=== PATIENT | male | born 1985 | race Caucasian/White ===

== ENCOUNTER 2020-06-13 18:12 | Inpatient (IN) | payer OTHER, SELFPAY ==
[~2020-06-13] VITALS: Ht 193 cm; Wt 83.9 kg
[~2020-06-13 18:12] MED LIST: ACET650T11 PO; ARIP15TA5 PO; CARB300C PO; GABA600T11 PO; MIRT45TA PO
[2020-06-13 18:17] VITALS: BP 133/72
--- NOTE | 2020-06-13 18:21 | NUR ---
34 y/o male biba from home placed on 515 by Gladys MUNOZ for suicide attempt. Pt states he took approx 16-17 Seroquel today. Multiple attempts at suicide in the past. Pt awake and alert. Denies pain. Suicide precautions in place. Pt calm and cooperative at this time medhx: seizures and bipolar
--- NOTE | 2020-06-13 18:27 | NUR ---
Per poison control watch for drowsiness-- keep airway intact, intubate as needed seizure precaution--ativan for seizure like activity Hypotension-- treat with IV fluids QTC prolongation-- correct if >460 Observe for 6 hrs
--- NOTE | 2020-06-13 18:35 | NUR ---
Pt states he is unable to give urine at this time.
--- NOTE | 2020-06-13 18:35 | NUR ---
Dr Rosas at bedside examining pt
[2020-06-13 18:56] LABS: BASOPHILS % (AUTO) 0.1 % (0.0-2.0); EOSINOPHILS # (AUTO) 0.3 K/uL (0-0.4); EOSINOPHILS % (AUTO) 5.4 % (0.0-4.0); HEMATOCRIT 35.9 % (36-52); HEMOGLOBIN 12.4 g/dL (12.0-18.0); LYMPHOCYTES # (AUTO) 1.6 K/uL (2.0-11.5); LYMPHOCYTES % (AUTO) 27.8 % (20.5-51.1); MEAN CORPUSCULAR HEMOGLOBIN 28 pg (27-31); MEAN CORPUSCULAR HGB CONC 34 g/dL (33-37); MONOCYTES # (AUTO) 0.4 K/uL (0.8-1.0); MONOCYTES % (AUTO) 7.5 % (1.7-9.3); NEUTROPHILS # (AUTO) 3.4 K/uL (1.8-7.7); NEUTROPHILS % (AUTO) 59.2 % (42.2-75.2); PLATELET COUNT (AUTO) 171 K/uL (140-450); RED BLOOD CELL COUNT(AUTO) 4.38 MIL/uL (4.20-6.10); RED CELL DISTRIBUTION WIDTH 12.8 % (11.6-13.7); WHITE BLOOD COUNT (AUTO) 5.7 K/uL (4.8-10.8)
[2020-06-13 19:16] LABS: ACETAMINOPHEN < 0.5 ug/ml (10-30); ALBUMIN 3.4 g/dL (3.4-5.0); ANION GAP 12.3 (8-16); ASPARTATE AMINOTRANSFERASE 23 U/L (15-37); CARBON DIOXIDE 25.9 mmol/L (21-32); CHLORIDE 109 mmol/L (98-107); GFR ARICAN-AMERICAN 109 mL/min (>90); GLUCOSE 112 mg/dL (74-106); POTASSIUM 4.2 mmol/L (3.5-5.1); SALICYLATE < 2.8 mg/dL (2.8-20.0); SODIUM SERUM 143 mmol/L (136-145); TOTAL BILIRUBIN 0.4 mg/dL (0.0-1.0); UREA NITROGEN, BLOOD 22 mg/dL (7-18)
--- NOTE | 2020-06-13 19:17 | NUR ---
Pt report given to Kingsley RICE. Transfer of care at this time.
--- NOTE | 2020-06-13 19:17 | NUR ---
REPORT RECEIVED FROM KARLY RICE FOR CONTINUITY OF CARE
[2020-06-13] MEDS: NACL 0.9% 1,000 ML IV SCH (19:28)
[2020-06-13] MEDS ORDERED: ACETAMINOPHEN 325 MG TAB PO PRN (19:30)
--- NOTE | 2020-06-13 19:30 | NUR ---
JOSE GUADALUPE ANTIGEN AND NOVEL COVID SWABS DONE AND SENT TO LAB
--- NOTE | 2020-06-13 20:00 | NUR ---
PT UNABLE TO GIVEN URINE AT THIS TIME
--- NOTE | 2020-06-13 21:15 | NUR ---
Patient will be admitted to care of DR CORNELIUS. Admited to TELE. Will go to room 109 A. Belongings list completed. Report to LAINE RICE.
--- NOTE | 2020-06-13 21:15 | NUR ---
RECEIVED REPORT FROM ER NURSE, MORGAN. PT ON TELE. SLEEPING BUT EASILY AROUSABLE. NO S/S RESPIRATORY DISTRESS. NO C/O PAIN AT THIS TIME. HAS CIGARETTE WANG ON RIGHT ARM. IV SITE LFA 20G, S.L. PT ON 5150 FOR SEROQUEL OVERDOSE. SITTER AT BEDSIDE. ORIENTED TO ROOM AND HOSPITAL. SAFETY MEASURES IN PLACE. PT IS PUI. ISOLATION PRECAUTION IN PLACE. WILL CLOSELY MONITOR PT.
--- NOTE | 2020-06-13 21:30 | NUR ---
PT REFUSED VITAL SIGNS TO BE AND MRSA SWAB TO BE TAKEN. WILL CONTINUE TO MONITOR
--- NOTE | 2020-06-13 21:45 | NUR ---
PT REFUSED TO GET IVF AND ANSWER ADMISSION QUESTIONS. PT GUARDS AND TURNS BODY AWAY, PULLS BLANKET COVERS OVER FACE. NO S/S RESPIRATORY DISTRESS. WILL CONTINUE TO MONITOR
--- NOTE | 2020-06-13 23:00 | NUR ---
PT ASLEEP IN BED. ABLE TO AROUSE AND OPEN EYES TO VOICE AND TOUCH. NO DISTRESS NOTED. WILL CONTINUE TO MONITOR
[2020-06-14] VITALS: BP 137/76
--- NOTE | 2020-06-14 01:15 | NUR ---
PT ASLEEP IN BED. RESPIRATIONS EVEN AND UNLABORED. NO DISTRESS NOTED. WILL CONTINUE TO MONITOR
--- NOTE | 2020-06-14 03:50 | NUR ---
PT ASLEEP IN BED. NO DISTRESS NOTED. WILL CONTINUE TO MONITOR
[2020-06-14 04:00] VITALS: BP 117/71
[2020-06-14] MEDS: NACL 0.9% 1,000 ML IV SCH ×2 (05:28→15:28)
--- NOTE | 2020-06-14 06:30 | NUR ---
PT ASLEEP IN BED. NO DISCOMFORTED NOTED. NO DISTRESS NOTED. WILL CONTINUE TO MONITOR
--- NOTE | 2020-06-14 07:10 | NUR ---
ENDORSED PT TO DAY RN FOR CONTINUITY OF CARE. PT IS IN STABLE CONDITION
--- NOTE | 2020-06-14 07:11 | NUR ---
RECEIVED REPORT FROM BLUEBERRY GROWER NURSE LAINE FOR CONTINUITY OF CARE. PATIENT IN STABLE CONDITION. RESPIRATIONS EVEN AND UNLABORED, ROOM AIR. IV INTACT AND PATENT. SAFETY MEASURES IN PLACE. BED IN LOW POSITION. SITTER AT BEDSIDE. WILL CONTINUE TO MONITOR.
[2020-06-14 07:34] LABS: EOSINOPHILS # (AUTO) 0.3 K/uL (0-0.4); EOSINOPHILS % (AUTO) 3.5 % (0.0-4.0); HEMATOCRIT 38.7 % (36-52); LYMPHOCYTES # (AUTO) 1.4 K/uL (2.0-11.5); LYMPHOCYTES % (AUTO) 17.8 % (20.5-51.1); MEAN CORPUSCULAR HEMOGLOBIN 28 pg (27-31); MEAN CORPUSCULAR HGB CONC 34 g/dL (33-37); MEAN CORPUSCULAR VOLUME 83.5 fL (80-94); MONOCYTES # (AUTO) 0.8 K/uL (0.8-1.0); MONOCYTES % (AUTO) 10.2 % (1.7-9.3); NEUTROPHILS # (AUTO) 5.2 K/uL (1.8-7.7); NEUTROPHILS % (AUTO) 68.5 % (42.2-75.2); PLATELET COUNT (AUTO) 183 K/uL (140-450); RED BLOOD CELL COUNT(AUTO) 4.64 MIL/uL (4.20-6.10); RED CELL DISTRIBUTION WIDTH 12.9 % (11.6-13.7); WHITE BLOOD COUNT (AUTO) 7.6 K/uL (4.8-10.8)
[2020-06-14 08:09] LABS: ALBUMIN 3.4 g/dL (3.4-5.0); ANION GAP 12.7 (8-16); CARBON DIOXIDE 24.4 mmol/L (21-32); CREATININE 0.9 mg/dL (0.6-1.3); POTASSIUM 4.1 mmol/L (3.5-5.1); TOTAL BILIRUBIN 0.2 mg/dL (0.0-1.0)
--- NOTE | 2020-06-14 08:42 | NUR ---
MARTIR FROM POISON CONTROL CALLED FOR UPDATE. ALL QUESTIONS ANSWERED AT THIS TIME.
--- NOTE | 2020-06-14 09:00 | NUR ---
LEFT A VOICEMAIL MESSAGE FOR DR. VASQUEZ TO FOLLOW UP WITH THE PSYCH CONSULT. AWAITING FOR CALL BACK.
--- NOTE | 2020-06-14 09:06 | NUR ---
PATIENT HAS BEEN SCREENED AND CATEGORIZED LOW NUTRITION RISK DUE TO 5150 STATUS. PATIENT WILL BE SEEN WITHIN 7 DAYS OF ADMISSION. 06/20/[address]
--- NOTE | 2020-06-14 10:01 | NUR ---
PATIENT SLEEPING AT THIS TIME. RESPIRATIONS EVEN AND UNLABORED. BED IN LOW POSITION. SITTER AT BEDSIDE. WILL CONTINUE TO MONITOR.
[2020-06-14 12:00] VITALS: BP 109/65
--- NOTE | 2020-06-14 12:05 | NUR ---
DISCHARGE PLANNING: THIS IS A 34 Y/O MALE PATIENT FROM HOME, WHO WAS BROUGHT IN BY PD ON 5150 HOLD DUE TO HE OVERDOSED ON SEROQUEL. PAST MEDICAL HISTORY INCLUDE ASTHMA, SEIZURE. INITIAL DIAGNOSIS OF OVERDOSE. CURRENT LABS INCLUDE WBC 7.6, H/H 13.0/38.7, NA/K 143/4.1, BUN/CREA 17/0.9. RAPID COVID NEGATIVE, PCR PENDING. PSYCHE CONSULT IN PLACE NOT SEEN YET. DC PLAN PENDING ON PSYCHE'S RECOMMENDATIONS. Addendum: 06/16/20 at 1351 by Nivia Diez DC PLANNING: DR ROSADO EVALUATED PATIENT ON 10/15/19 AND CONTINUE 5150 HOLD CALLED [phone] SPOKE WITH ARPAN AND FAXED 5150 HOLD AND ALL PAPER WORK TO [phone] CM TO FOLLOW Addendum: 06/16/20 at 1443 by Nivia Diez DC PLANNING: RECEIVED A CALL FROM ARP[facility] STATED THE HOLD WILL BE 170,TODAY NOTIFIED CHARGE NURSE KALIA WHEN DR VASQUEZ COMES IF HE RENEW IT TO [facility] [phone] CM TO FOLLOW
--- NOTE | 2020-06-14 12:10 | NUR ---
PATIENT CONTINUES TO NOT VERBALIZE HIS WANTS AND NEEDS. PATIENT WILL SHAKE HEAD YES AND NO WHEN ASKED A QUESTION. ENCOURAGE PATIENT TO DRINK WATER. VITALS TAKEN AT THIS TIME. SITTER AT BEDSIDE. BED IN LOW POSITION. WILL CONTINUE TO MONITOR.
--- NOTE | 2020-06-14 14:00 | NUR ---
PATIENT SLEEPING AT THIS TIME. RESPIRATIONS EVEN AND UNLABORED. BED IN LOW POSITION. SITTER AT BEDSIDE. WILL CONTINUE TO MONITOR.
[2020-06-14 16:00] VITALS: BP 111/62
--- NOTE | 2020-06-14 17:02 | NUR ---
PATIENT SLEEPING AT THIS TIME, EASY TO AROUSE. RESPONDS TO HIS NAME. BED IN LOW POSITION. SITTER AT BEDSIDE. WILL CONTINUE TO MONITOR.
--- NOTE | 2020-06-14 19:15 | NUR ---
GAVE REPORT TO POSTAL SUPERVISOR NURSE FOR CONTINUITY OF CARE. PATIENT IN STABLE CONDITION.
[2020-06-14 20:00] VITALS: BP 125/79
--- NOTE | 2020-06-14 20:00 | NUR ---
RECEIVED BEDSIDE REPORT FROM DAY RN EARLIER FOR CONTINUITY OF CARE. PT ASLEEP AND EASY TO AROUSE. ON 5150 HOLD FOR SEROQUEL OVER DOSE. 1:1 SITTER AT THE BEDSIDE. PT DENIES ANY PAIN, CHEST PAIN ANT SOB AT THIS TIME. SB ON PROPERTY DISPOSAL OFFICER HR-49. VSS, AFEBRILE, SATING 97% ON RA. NOT ON ANY DISTRESS AT THIS TIME. CALL LIGHT WITHIN REACH. WILL CONTINUE POC AND MONITORING.
--- NOTE | 2020-06-14 22:00 | NUR ---
PT STILL REFUSED IVF, PER DAY RN MD IS AWARE . CALL LIGHT WITHIN REACH. SITTER AT THE BEDSIDE.
--- NOTE | 2020-06-14 22:30 | NUR ---
BOTH COVID RAPID AND PCR ARE NEGATIVE. TOOK PATIENT OFF ISOLATION. RUG CLIPPER MAGDI OJEDA.
[2020-06-15] VITALS: BP 97/55
--- NOTE | 2020-06-15 | NUR ---
PT VITAL SIGNS STABLE, AFEBRILE, SATING 98% ON RA. NO COMPLAIN OF PAIN AT THIS TIME. SITTER AT THE BEDSIDE.
[2020-06-15] MEDS: NACL 0.9% 1,000 ML IV SCH ×3 (01:28→21:28)
--- NOTE | 2020-06-15 02:00 | NUR ---
MADE ROUNDS. PT ASLEEP. NOT IN ANY DISTRESS. VISIBLE CHEST RISE AND FALL NOTED. WILL CONTINUE TO MONITOR.
[2020-06-15 04:00] VITALS: BP 114/62
--- NOTE | 2020-06-15 04:00 | NUR ---
PATIENT HAS BEEN SLEEPING THROUGHOUT THE SHIFT. PT HEART RATE SLOWS DOWN TO 36 NON SUSTAIN AND GOES BACK UP TO 50'S WHEN WE WAKE UP THE PT. PT DIDN'T DRINK WATER AND REFUSED IVF ALL NIGHT. DIDN'T SPEAK AND SOMETIMES PT JUST NOD OR SHAKE HIS HEAD. SITTER AT THE BEDSIDE.VSS, AFEBRILE, SATING 98% ON RA. SINUS MARLEEN ON REMOTE SENSING TECHNICIAN, HR-50.
--- NOTE | 2020-06-15 06:08 | NUR ---
PATIENT STABLE. NO SIGN AND SYMPTOMS OF DISTRESS NOTED. NO COMPLAIN AT THIS TIME. ALL NEEDS ATTENDED. REMINDED THE SITTER AGAIN TO SAVE URINE FOR SPECIMEN WHEN THE PT URINATE AND VERBALIZED UNDERSTANDING. CALL LIGHT WITHIN REACH. WILL ENDORSE THE PT TO THE ONCOMING RN FOR CONTINUITY OF CARE.
--- NOTE | 2020-06-15 07:28 | NUR ---
Endorsed patient to the oncoming Rn for continuity of care. Patient stable. Signing off.
--- NOTE | 2020-06-15 07:30 | NUR ---
RECEIVED REPORT FROM LAY HEALTH ADVOCATE NURSE FABIAN CRAMER-DWAYNE. PT RESTING IN BED, AOX4- REFUSING TO SPEAK SINCE ADMISSION, ON ROOM AIR WITH LEFT FA #20G- REFUSING IVF. DISCUSSED PLAN OF CARE- PT REFUSED TO SPEAK. RIGHT ARM CIGARETTE BURN. CALL LIGHT WITHIN REACH. NO S/S OF RESPIRATORY DISTRESS OR DISCOMFORT NOTED AT THIS TIME. WILL CONTINUE TO MONITOR.
[2020-06-15 08:00] VITALS: BP 113/67
--- NOTE | 2020-06-15 09:30 | NUR ---
PT RESTING IN BED. CALL LIGHT WITHIN REACH. NO S/S OF RESPIRATORY DISTRESS OR DISCOMFORT NOTED AT THIS TIME. WILL CONTINUE TO MONITOR.
[2020-06-15 09:55] LABS: APPEARANCE,URINE CLEAR (CLEAR); BILIRUBIN,URINE 1+ (NEGATIVE); BLOOD, URINE NEGATIVE (NEGATIVE); COLOR,URINE YELLOW (YELLOW); LEUKOCYTE ESTERASE ,URINE NEGATIVE (NEGATIVE); NITRITE, URINE NEGATIVE (NEGATIVE); UGLUCOSE NEGATIVE (NEGATIVE)
[2020-06-15 10:08] LABS: BARBITURATE, URINE NEGATIVE ng/ml (NEG <=200); BENZODIAZEPINE, URINE NEGATIVE ng/mL (NEG <=200); CANNABINOID, URINE NEGATIVE ng/mL (NEG <=50); COCAINE, URINE NEGATIVE ng/mL (NEG <=300); OPIATE, URINE NEGATIVE ng/mL (NEG <=2000); PHENCYCLIDINE SCREEN,URINE NEGATIVE ng/mL (NEG <=25)
--- NOTE | 2020-06-15 11:30 | NUR ---
PT CONTINUES TO REST IN BED. CALL LIGHT WITHIN REACH. NO S/S OF RESPIRATORY DISTRESS OR DISCOMFORT NOTED AT THIS TIME. WILL CONTINUE TO MONITOR.
[2020-06-15 12:00] VITALS: BP 122/75
--- NOTE | 2020-06-15 13:30 | NUR ---
PT CONTINUES TO REST IN BED. CALL LIGHT WITHIN REACH. NO S/S OF RESPIRATORY DISTRESS OR DISCOMFORT NOTED AT THIS TIME. WILL CONTINUE TO MONITOR.
--- NOTE | 2020-06-15 15:30 | NUR ---
PT CONTINUES TO REST IN BED. CALL LIGHT WITHIN REACH. NO S/S OF RESPIRATORY DISTRESS OR DISCOMFORT NOTED AT THIS TIME. WILL CONTINUE TO MONITOR.
[2020-06-15 16:00] VITALS: BP 110/67
--- NOTE | 2020-06-15 17:30 | NUR ---
PT RESTING IN BED. SITTER 1:1. NO S/S OF RESPIRATORY DISTRESS OR DISCOMFORT NOTED AT THIS TIME. WILL CONTINUE TO MONITOR.
--- NOTE | 2020-06-15 19:16 | NUR ---
ENDORSED PT CARE TO REGIONAL RECRUITER NURSE FERNANDO. PT STABLE AT THIS TIME.
--- NOTE | 2020-06-15 19:35 | NUR ---
RECEIVED REPORT FROM DAY SHIFT; PT HAS EYES CLOSED; AROUSABLE TO NAME; 1:1 SITTER @ BEDSIDE. ALERT TO NAME; UNABLE TO ANSWER OTHER QUESTIONS @ THIS TIME. NO S/S OF RESP DISTRESS NOTED, EQUAL, EVEN CHEST RISE. DENIES PAIN @THIS TIME. SKIN INTACT. PERIPHERAL IV TO L FA NOTED. BED LOCKED IN LOWEST POSITION. SAFETY PRECAUTIONS IN PLACE. WILL CONTINUE TO OBSERVE.
[2020-06-15 20:00] VITALS: BP 132/50
--- NOTE | 2020-06-15 21:15 | NUR ---
PT HAS EYES CLOSED; AROUSABLE. NO S/S OF ACUTE DISTRESS NOTED. FLACC 0 WILL CONTINUE TO OBSERVE. SITTER @ BEDSIDE.
--- NOTE | 2020-06-15 23:35 | NUR ---
PT HAS EYES CLOSED, NO ACUTE DISTRESS NOTED. FLACC 0 WILL CONTINUE TO OBSERVE.
[2020-06-16] VITALS: BP 117/66
--- NOTE | 2020-06-16 01:10 | NUR ---
PT HAS EYES CLOSED; AROUSABLE. NO S/S OF ACUTE DISTRESS NOTED. FLACC 0 SITTER @ BEDSIDE. WILL CONTINUE TO OBSERVE.
--- NOTE | 2020-06-16 03:08 | NUR ---
PATIENT ASLEEP IN BED. NO S/S ACUTE DISTRESS. SITTER AT BEDSIDE.
[2020-06-16 04:00] VITALS: BP 99/51
--- NOTE | 2020-06-16 05:27 | NUR ---
MADE ROUNDS. PATIENT IS ASLEEP AND IN STABLE CONDITION. NO S/S ACUTE DISTRESS. SITTER AT BEDSIDE.
--- NOTE | 2020-06-16 07:15 | NUR ---
RECEIVED BEDSIDE REPORT FROM DISTANCE LEARNING TECHNICIAN NURSE ZULY RN, PT RESTING, NO DISTRESS NOTED, IV TO L FA 20G INTACT, SL, PT REFUSING IV FLUID AND SALINE FLUSHES. PT ON ROOM AIR, NO SOB NOTED, SATURATION @ 93%, DENIES ANY PAIN AT THIS MOMENT, INITIAL ASSESSMENT DONE, ALL SAFETY PRECAUTION MET, SITTER AT BEDSIDE WILL CONTINUE TO MONITOR.
[2020-06-16] MEDS: NACL 0.9% 1,000 ML IV SCH (07:28)
[2020-06-16 08:00] VITALS: BP 119/70
--- NOTE | 2020-06-16 11:02 | NUR ---
CALLED DR. ARROYO REGARDING PT REQUESTING NICOTINE PATCH DUE TO PT IS A SMOKER, PER WILL PUT IN ORDERS. WILL CONTINUE WITH ORDERS.
[2020-06-16] MEDS ORDERED: NICOTINE TRANSD SYS 14 MG/24 HR PATCH TD SCH (11:40)
--- NOTE | 2020-06-16 11:59 | NUR ---
NICOTINE PATCH PER DR ORDER ADMINISTERED TO L UPPER ARM, PATIENT TOLERATED WELL, NO DISTRESS NOTED, WILL CONTINUE TO MONITOR.
[2020-06-16 12:00] VITALS: BP 130/71
--- NOTE | 2020-06-16 14:27 | NUR ---
Packet received for placement. Looking through chart, 5150 will today at 17[address]. Per Dr[address] Oliverio Gonzáles will evaluate patient later. Will monitor documentation
[2020-06-16 16:00] VITALS: BP 130/77
--- NOTE | 2020-06-16 17:00 | NUR ---
DR VASQUEZ AT BEDSIDE, PER PT NO LONGER ON 5150 HOLD
[2020-06-16] MEDS ORDERED: QUET50TA PO (17:08)
[2020-06-16 17:14] VITALS: BP 130/71
--- NOTE | 2020-06-16 17:34 | NUR ---
PT SIGNED ALL DISCHARGED PAPER, NO IV NOTED, PT STATED ALREADY PULLED IT OUT. PT STABLE.
--- NOTE | 2020-06-16 17:35 | NUR ---
PT LEFT UNIT IN STABLE CONDITION, NO DISTRESS NOTED, STABLE, WALKED HIMSELF TO LOBBY, REFUSED WHEELCHAIR.
[2020-06-17] MEDS ORDERED: NICOTINE TRANSD SYS 14 MG/24 HR PATCH TD SCH (09:00)
== END 2020-06-16 17:40 | disposition home or self-care (01) | DRG 817 ==
LOC: MED 18:12 → MTU 20:00 → OBSVTOIN 06-14 14:38
PROVIDERS: ADMIT Hospitalist; ATTEND Hospitalist
DX: T43.592A Poisoning by other antipsychotics and neuroleptics, intentional self-harm, initial encounter (principal); Y92.89 Other specified places as the place of occurrence of the external cause; J45.909 Unspecified asthma, uncomplicated; R45.851 Suicidal ideations; F31.9 Bipolar disorder, unspecified; G40.909 Epilepsy, unspecified, not intractable, without status epilepticus; Z20.828 Contact with and (suspected) exposure to other viral communicable diseases
CPT/HCPCS: 99285; G0378; 36415; 80053; 80305; 81003; 85025; 93005; G0480; G0482; U0003-CS